=== PATIENT | female | born 1940 | race African-American/Black ===

== ENCOUNTER 2022-05-18 08:52 | Emergency (ER) | payer OTHER ==
[~2022-05-18] VITALS: Ht 167.6 cm; Wt 52.0 kg
[2022-05-18 09:00] VITALS: BP 162/80
[2022-05-18] MEDS ORDERED: KETOROLAC 60MG/2ML VIAL IM ONE (09:00)
[2022-05-18] MEDS ORDERED: TOPUD PO (10:31)
== END 2022-05-18 11:54 | disposition home or self-care (01) ==
LOC: ER 09:20
DX: M54.9 Dorsalgia, unspecified (principal); I10 Essential (primary) hypertension
CPT/HCPCS: 96372; 99283; J1885